=== PATIENT | female | born 1970 | race Caucasian/White ===

== ENCOUNTER 2024-02-20 06:01 | Emergency (ER) | payer OTHER ==
[~2024-02-20] VITALS: Ht 170.2 cm; Wt 67.3 kg
[2024-02-20 06:47] VITALS: TEMP 98
[2024-02-20] MEDS ORDERED: Ondansetron 4 MG/2 ML VIAL IV ONE (07:03)
[2024-02-20] MEDS ORDERED: fentaNYL 50 MCG/ML 2 ML VIAL IV ONE (07:05)
[2024-02-20] MEDS ORDERED: Morphine 4 MG/ML VIAL IV PRN (07:15)
[2024-02-20] MEDS ORDERED: Ondansetron 4 MG/2 ML VIAL IV PRN (07:15)
[2024-02-20] MEDS ORDERED: Ketorolac 15 MG/ML VIAL IV ONE (08:30)
[2024-02-20 09:20] VITALS: BP 116/68; PULSE 60
== END 2024-02-20 09:20 | disposition home or self-care (01) ==
LOC: COL.ER 06:01
DX: S93.401A Sprain of unspecified ligament of right ankle, initial encounter (principal); W10.9XXA Fall (on) (from) unspecified stairs and steps, initial encounter
CPT/HCPCS: J1885; J2270; J2405; J3010